=== PATIENT | female | born 1995 | race Caucasian/White ===

== ENCOUNTER → 2018-07-25 15:31 | Outpatient (CLI) | payer OTHER, SELFPAY ==
[2018-08-04 11:37] LABS: HPV APTIMA, High Risk Positive (Negative)
== END ==
PROVIDERS: Visit Provider Obstetrics & Gynecology
DX: Z12.4 Encounter for screening for malignant neoplasm of cervix (principal)
CPT/HCPCS: 88175; G0145

== ENCOUNTER → 2018-09-11 15:50 | Outpatient (CLI) | payer OTHER, SELFPAY ==
--- NOTE | 2018-09-11 | IMM_PTH ---
PATIENT: REGINO MELO LOC: [facility] U#:[id number] AGE/SX: 30/F ROOM: RE09/11/[address]: Dr. Michele Saldana MD : 1995 BED: DIS: SPEC #: [id number] RECD: 09/13/18 11:48 STATUS: IMELDA NUBIA #: [id number] KAVYA: 09/11/18 00:[address]: Michele Saldana DEPT: IMMUNOHISTOCHEMISTRY RECD BY: Nadege Hedrick Tissues: A - Uterine cervix, NOS Procedures: p16 (initial) KI-67 (add) PHYSICIAN & INSTITUTION [place] [address] SPECIMEN INFORMATION: Tissue Source: A - 6 o'clock Clinical Info: R87.612 Specimen Number: [id number] CPT code: 10049, 41125 METHODOLOGY: Deparaffinized sections of prefer/formalin-fixed tissue or PAP/DQ stained slides are incubated with monoclonal/polyclonal antibodies/oligonucleotide probes. Localization is made via biotin free immunoperoxidase method. Appropriate controls are performed and reacted as expected. Results on target cell population are indicated in the following table: RESULTS: ANTIBODY / CLONE RESULT Block A P16 (E6H4) positive, focal block-like Ki-67 (30-9) positive, low to moderate These tests were developed and their performance characteristics determined by [facility]. They may not have been cleared or approved by the U.S. Food and Drug Administration. The FDA has determined that such clearance or approval is not necessary. INTERPRETATION: A. Cervix at 6 o'clock, biopsy: Mild and focal moderate squamous dysplasia, YOGESH I-II ([facility]IL). AM:wendy 09/16/18
--- NOTE | 2018-09-11 15:15 | CER_PTH ---
PATIENT: REGINO MELO LOC: [facility] U#:[id number] AGE/SX: 30/F ROOM: RE09/11/[address]: Dr. Michele Saldana MD : 1995 BED: DIS: SPEC #: [id number] RECD: 09/11/18 15:50 STATUS: IMELDA NUBIA #: [id number] KAVYA: 09/11/18 15:[address]: Michele Saldana DEPT: SURGICAL PATHOLOGY RECD BY: Raudel Butler Tissues: A - Uterine cervix, NOS B - Endocervical Procedures: Surgery Specimen Level IV HEADER OPERATION: Colposcopy PRE-OP DIAGNOSIS: R87.612 TISSUE SUBMITTED: A - 6 o'clock, B - ECC MICROSCOPIC DIAGNOSIS A. 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 Squamous metaplasia and chronic inflammation. See comment. B. Endocervix, curettings: Rare strips of benign superficial endocervix. No evidence of dysplasia. See comment. AM:wendy 09/13/18 COMMENT A. Results from immunohistochemistry ([id number]) for surrogate HPV marker (p16) will be reported separately. B. The specimen primarily consists of mucoid material. Clinical correlation is suggested. MICROSCOPIC DESCRIPTION Slides are reviewed. GROSS DESCRIPTION A - Received in fixative is one container labeled with the patient's name and designated 6 o'clock. The specimen consists of multiple irregular fragments of light will soft tissue that in aggregate measure 0.6 x 0.5 x 0.1 cm. The specimen is totally submitted in one cassette. B - Received in fixative is one container labeled with the patient's name and designated ECC. The specimen consists of light will mucoid material aggregating to 1 x 1 x <0.1 cm. The specimen is totally submitted in one cassette. / AM:wendy 09/12/18 TC:4 CPT: 48069 x2
== END ==
PROVIDERS: Referring Provider Obstetrics & Gynecology; Visit Provider Obstetrics & Gynecology
DX: R87.612 Low grade squamous intraepithelial lesion on cytologic smear of cervix (LGSIL) (principal)
CPT/HCPCS: 88305; 88341; 88342

== ENCOUNTER → 2019-09-22 16:26 | Outpatient (CLI) | payer OTHER, SELFPAY ==
[2019-09-25 17:50] LABS: HPV APTIMA, High Risk Positive (Negative); HPV Reflexed? YES, CHARGE PATIENT
== END ==
PROVIDERS: Visit Provider Obstetrics & Gynecology
DX: Z12.4 Encounter for screening for malignant neoplasm of cervix (principal)
CPT/HCPCS: 87624; 88175; G0145

== ENCOUNTER → 2019-10-09 14:33 | Outpatient (CLI) | payer OTHER, SELFPAY ==
[2017-05-28 18:02] VITALS: BMI 27.1
--- NOTE | 2019-10-09 | IMM_PTH ---
PATIENT: REGINO MELO LOC: [facility] U#:[id number] AGE/SX: 30/F ROOM: RE10/09/[address]: Dr. Michele Saldana MD : 1995 BED: DIS: SPEC #: [id number] RECD: 10/13/19 12:55 STATUS: IMELDA REBecca #: [id number] KAVYA: 10/09/19 00:[address]: Michele Saldana DEPT: IMMUNOHISTOCHEMISTRY RECD BY: Nadege Hedrick ENTERED: 10/13/19 12:56 SP TYPE: IMMUNO OTHR DR: No Primary Care Phys Tissues: A - Uterine cervix, NOS B - Endocervical Procedures: P16 (add) KI-67 (initial) PHYSICIAN & INSTITUTION [place] [address] SPECIMEN INFORMATION: Tissue Source: A - Cervical biopsy at 6 o'clock, B - ECC Clinical Info: ASCUS, positive HPV Specimen Number: [id number] & B CPT code: 55581 x2, 29618 x2 METHODOLOGY: Deparaffinized sections of prefer/formalin-fixed tissue or PAP/DQ stained slides are incubated with monoclonal/polyclonal antibodies/oligonucleotide probes. Localization is made via biotin free immunoperoxidase method. Appropriate controls are performed and reacted as expected. Results on target cell population are indicated in the following table: RESULTS: ANTIBODY / CLONE RESULT Block A P16 (E6H4) positive, focal and patchy Ki-67 (30-9) negative Block B P16 (E6H4) positive Ki-67 (30-9) positive These tests were developed and their performance characteristics determined by [facility]. They may not have been cleared or approved by the U.S. Food and Drug Administration. The FDA has determined that such clearance or approval is not necessary. The above immunohistochemical/dualISH markers are ordered and reviewed by the Pathologist. INTERPRETATION: A. Cervical biopsy at 6 o'clock: Focal changes consistent with HPV cytopathic effects. B. ECC: A minute detached and unoriented fragment of squamous epithelium with dysplastic changes. SJ:wendy 10/14/19
--- NOTE | 2019-10-09 14:30 | CER_PTH ---
PATIENT: REGINO MELO LOC: [facility] U#:[id number] AGE/SX: 30/F ROOM: RE10/09/[address]: Dr. Michele Saldana MD : 1995 BED: DIS: SPEC #: [id number] RECD: 10/09/19 15:32 STATUS: IMELDA NUBIA #: [id number] KAVYA: 10/09/19 14:[address]: Michele Saldana DEPT: SURGICAL PATHOLOGY RECD BY: Carl Stephens ENTERED: 10/10/19 11:14 SP TYPE: CERV OTHR DR: No Primary Care Phys Tissues: A - Uterine cervix, NOS B - Uterine cervix, NOS Procedures: Surgery Specimen Level IV HEADER OPERATION: Colposcopy PRE-OP DIAGNOSIS: ASCUS, positive HPV TISSUE SUBMITTED: A - Cervical biopsy 6 o'clock, B - ECC MICROSCOPIC DIAGNOSIS A. Cervix, 6 o'clock, biopsy: Focal changes consistent with HPV cytopathic effects. Chronic inflammation. See comment. B. ECC: A minute detached and unoriented fragment of squamous epithelium with focal dysplastic changes Fragments of benign endocervical epithelium, blood and mucous. See comment. SITA:wendy 10/13/19 COMMENT A & B. Immunohistochemistry ([id number]) for surrogate HPV marker (p16) supports the above diagnosis. Please make reference to previous specimen ([id number]) cervix at 6 o'clock, biopsy with diagnosis of mild to focal moderate squamous dysplasia. MICROSCOPIC DESCRIPTION Slides are reviewed. GROSS DESCRIPTION A - Received in fixative is one container labeled with the patient's name and designated cervical biopsy 6 o'clock. The specimen consists of multiple irregular fragments of light will soft tissue that in aggregate measure 1 x 0.3 x 0.1 cm. The specimen is totally submitted in one cassette. B - Received in fixative is one container labeled with the patient's name and designated ECC. The specimen consists of multiple fragments of hemorrhagic soft tissue that in aggregate measure 1 x 0.5 x 0.1 cm. The specimen is totally submitted in one cassette. / SJ:wendy 10/10/19 TC:5 CPT: 67379 x2
== END ==
PROVIDERS: Referring Provider Obstetrics & Gynecology; Visit Provider Obstetrics & Gynecology
DX: R87.610 Atypical squamous cells of undetermined significance on cytologic smear of cervix (ASC-US) (principal); R87.810 Cervical high risk human papillomavirus (HPV) DNA test positive
CPT/HCPCS: 88305; 88341; 88342

== ENCOUNTER → 2020-10-27 | Outpatient (CLI) | payer OTHER, SELFPAY ==
[2017-05-28 18:02] VITALS: BMI 27.1
[2020-11-03 16:59] LABS: HPV APTIMA, High Risk Negative (Negative)
[2020-11-03 17:00] LABS: HPV Reflexed? YES, CHARGE PATIENT
== END | disposition home or self-care (01) ==
LOC: LABSPEC 17:15
PROVIDERS: Visit Provider Obstetrics & Gynecology
DX: Z12.4 Encounter for screening for malignant neoplasm of cervix (principal)
CPT/HCPCS: 87624; 88175; G0145

== ENCOUNTER 2021-11-02 16:52 | Outpatient (CLI) | payer OTHER, SELFPAY ==
[2021-11-07 18:01] LABS: HPV APTIMA, High Risk Negative (Negative); HPV Reflexed? YES, CHARGE PATIENT
== END 2021-11-02 23:59 | disposition home or self-care (01) ==
PROVIDERS: Visit Provider Obstetrics & Gynecology
DX: Z12.4 Encounter for screening for malignant neoplasm of cervix (principal); Z11.3 Encounter for screening for infections with a predominantly sexual mode of transmission; N89.8 Other specified noninflammatory disorders of vagina
CPT/HCPCS: 87624; 88175; G0145

== ENCOUNTER → 2022-03-23 | Outpatient (CLI) | payer OTHER, SELFPAY | END | disposition home or self-care (01) | PROVIDERS: Visit Provider Obstetrics & Gynecology | DX: Z11.3 Encounter for screening for infections with a predominantly sexual mode of transmission (principal) ==

== ENCOUNTER 2022-07-03 07:37 | Emergency (ER) | payer OTHER, SELFPAY ==
[2022-07-03 07:37] VITALS: BP 117/80; PULSE 102; RESP 16; TEMP 36.2; O2SAT 99; BMI 28.1
[2022-07-03 07:40] VITALS: BP 117/80; PULSE 102; RESP 18; TEMP 36.2; O2SAT 99
--- NOTE | 2022-07-03 07:46 | EDS_ITS ---
HPI History of Present Illness Chief Complaint: Fever Informant: patient Onset/Context/Timing Onset: Days (5 days) Current Severity: Mild Maximum Severity: Moderate Narrative Narrative: Patient presents with generalized illness and fever for the past 5 days. She states her temperatures been up around 102. She complains of some left lower quadrant abdominal pain. She is a mild headache. She denies significant cough, congestion, nausea, vomiting, diarrhea. No urinary symptoms. She went to [facility] on Sunday. She states lab work and urinalysis were negative. She reports having a temperature of 100.8 this morning he did not take anything for her fever. At the time of my exam her temperature is 98.4 orally. PFSH PFSH Medical History no medical history no medical history Home Medications NK 07/03/22 [History Last Taken Unknown] Allergy/AdvReac Type Severity Reaction Status Date / Time No Known Allergies Allergy Verified 07/03/22 07:40 Surgical History H/O knee surgery History of Social History Smoking Status: Never smoker ROS ROS ED Constitutional Constitutional ED: Reports chills and fever(s) Eyes Eyes: Denies change in vision or discharge from eye(s) ENT ENT ED: Denies discharge from eye(s), rhinorrhea or sore throat Cardiovascular Cardiovascular: Denies chest pain or palpitations Respiratory/Chest Respiratory/Chest: Denies cough or dyspnea Gastrointestinal Gastrointestinal: Reports abdominal pain; Denies diarrhea, nausea or vomiting Genitourinary Genitourinary ED: Denies difficulty urinating or dysuria Musculoskeletal Musculoskeletal: Denies back pain or extremity pain Integumentary Denies Abrasions or rash Neurologic Neurologic: Reports headache(s); Denies weakness Psychiatric Psychiatric: Denies anxiety or depression Allergic/Immunologic Allergic/Immunologic ED: Denies lip swelling or urticaria EXAM Physical Exam Const Vital Signs: 07/03/22 07:37 07/03/22 07:48 07/03/22 07:40 Temperature 97.1 F L 97.1 F L Temperature Source Temporal Temporal Pulse Rate 102 H 102 H Respiratory Rate 16 18 Respiratory Effort Normal Non-Labored Respiratory Pattern Normal Blood Pressure 117/80 117/80 Blood Pressure Mean 92 92 Pulse Ox 99 99 Oxygen Delivery Method Room Air Room Air 07/03/22 08:40 07/03/22 08:40 07/03/22 10:17 Temperature 98.2 F 98.2 F 98.5 F Temperature Source Oral Oral Oral Pulse Rate 89 89 87 Respiratory Rate 18 18 18 Respiratory Effort Respiratory Pattern Blood Pressure 111/84 H 111/84 H 110/74 Blood Pressure Mean 93 93 86 Pulse Ox 97 97 99 Oxygen Delivery Method Room Air Room Air Room Air 07/03/22 10:17 Temperature 98.5 F Temperature Source Oral Pulse Rate 87 Respiratory Rate 18 Respiratory Effort Respiratory Pattern Blood Pressure 110/74 Blood Pressure Mean 86 Pulse Ox 99 Oxygen Delivery Method Room Air Positive well nourished and well developed General Appearance ED: well developed HEENT Reports normocephalic and head/scalp atraumatic Eyes PERRL and EOMs intact bilaterally Neck supple Chest Wall inspection of chest normal and palpation of chest normal Resp normal respiratory effort and clear to auscultation bilaterally Cardio regular rate and regular rhythm GI normal to inspection, nondistended, normoactive bowel sounds and non-tender Palpation: soft Extremity normal to inspection Neuro oriented x3 and no sensory deficits noted Sensorium / Orientation: alert Motor Exam: strength 5/5 throughout Psych mental status grossly normal Skin no rashes or lesions noted MDM MDM MDM Narrative Medical decision making narrative: Patient is given IV fluids. Lab work, urinalysis, CT scan of the abdomen pelvis with contrast obtained. I did review the note from the work-up at [place]. Lab Data Attestation: I reviewed the patient's lab results. Labs: Laboratory Results - last 24 hr 07/03/22 07/03/22 07/03/22 07:52 07:52 07:52 WBC 7.0 RBC 4.34 Hgb 13.2 Hct 38.6 MCV 88.9 MCH 30.4 MCHC 34.2 RDW Std Deviation 38.5 RDW Coeff of Naldo 11.9 Plt Count 140 L MPV 8.7 Immature Gran % (Auto) 0.300 Neut % (Auto) 44.7 L Lymph % (Auto) 46.9 H [place] % (Auto) 4.4 Eos % (Auto) 2.0 Baso % (Auto) 1.7 H Absolute Neuts (auto) 3.1 Absolute Lymphs (auto) 3.28 Nucleated RBC % 0 Diff Path Review May foll Atypical Lymphocytes 3+ Platelet Estimate SLT DEC RBC Morphology NORM C+C Sodium 138 Potassium 3.4 L Chloride 104 Carbon Dioxide 27.0 Anion Gap 7 BUN 8 Creatinine 0.89 Estim Creat Clear Calc 94.93 Est GFR (MDRD) Af Amer 97 Est GFR (MDRD) Non-Af 81 BUN/Creatinine Ratio 9.0 L Glucose 125 H Calcium 8.7 Total Bilirubin 0.40 Direct Bilirubin 0.14 AST 158 H ALT 71 H Alkaline Phosphatase 121 H Total Protein 6.6 Albumin 3.0 L Globulin 3.6 Serum , Qual NEGATIVE Urine Color Urine Clarity Urine pH Ur Specific [place] Urine Protein Urine Glucose (UA) Urine Ketones Urine Occult Blood Urine Nitrite Urine Bilirubin Urine Urobilinogen Ur Leukocyte Esterase Urine RBC Urine WBC Ur Squamous Epith Cells Urine Bacteria Urine Mucus 07/03/22 08:30 WBC RBC Hgb Hct MCV MCH MCHC RDW Std Deviation RDW Coeff of Naldo Plt Count MPV Immature Gran % (Auto) Neut % (Auto) Lymph % (Auto) [place] % (Auto) Eos % (Auto) Baso % (Auto) Absolute Neuts (auto) Absolute Lymphs (auto) Nucleated RBC % Diff Path Review Atypical Lymphocytes Platelet Estimate RBC Morphology Sodium Potassium Chloride Carbon Dioxide Anion Gap BUN Creatinine Estim Creat Clear Calc Est GFR (MDRD) Af Amer Est GFR (MDRD) Non-Af BUN/Creatinine Ratio Glucose Calcium Total Bilirubin Direct Bilirubin AST ALT Alkaline Phosphatase Total Protein Albumin Globulin Serum , Qual Urine Color Yellow Urine Clarity Sl. Cloudy Urine pH 7.0 Ur Specific [place] 1.005 Urine Protein Negative Urine Glucose (UA) Normal Urine Ketones Negative Urine Occult Blood 25 H Urine Nitrite Negative Urine Bilirubin Negative Urine Urobilinogen Normal Ur Leukocyte Esterase Negative Urine RBC 0-5 SEEN Urine WBC 0 SEEN Ur Squamous Epith Cells 0-5 SEEN Urine Bacteria 0 SEEN Urine Mucus 0 SEEN Radiography Diagnostic Testing: Clinical Impression(s) from Imaging Studies Abdomen/Pelvis CT 07/03/22 09:35 IMPRESSION: Small amount of free fluid is seen in the cul-de-sac. This is more prominent on the right side. Follicles are seen in both ovaries more prominent on the right side. Electronically Signed: Randy Parisi MD at 10:08 EDT , Treatment and Re-Evaluation Narrative: CBC reveals normal white count with lymphocyte predominance. Chemistry studies significant for slightly low potassium at 3.4. LFTs reveal mild elevation in AST at 158 ALT of 71 and alk phos of 121. Patient has no tenderness in the right upper quadrant. test is negative and urinalysis reveals no infection. CT scan abdomen and pelvis reveals a small moderate free fluid in the cul-de-sac. No other acute findings are noted. Test results are discussed with the patient. She will continue supportive care. She has an appointment with [facility] later this month. I suspect her mild lab error secondary to a viral syndrome. Return instructions provided. Discharge Plan Triage Chief Complaint: Fever ED Provider: Ofelia Son Dx/Rx/DC Orders Clinical Impression: Viral syndrome, Abdominal pain Instructions: ED Abdominal Pain Unkn Cause Fem, ED Viral Syndrome (Adult) Prescriptions: No Action NK Primary Care Provider: Care Physician,No Primary Referrals: Loy Daley MD [Med Staff - Active Staff] - Keep Jason appointment Care Physician,No Primary [Primary Care Provider] - Disposition Disposition: Home, Self Care
[2022-07-03] MEDS: 0.9% Normal Saline 1,000 ML 150 ML IV (08:00)
[2022-07-03 08:02] LABS: Absolute Lymphocyte Count 3.28 X10^3/uL (0.83-4.51); Absolute Neutrophil Count 3.1 X10^3/uL (2.0-7.7); Basophil# 0.12 X10^3/uL; Basophil% 1.7 % (0-1); Eosinophil# 0.14 X10^3/uL; Hematocrit 38.6 % (37-47); Hemoglobin 13.2 g/dL (12.0-15.0); Lymphocyte # 3.28 X10^3/ul (0.83-4.51); Lymphocyte % 46.9 % (19-41); Mean Corp Hgb Conc 34.2 g/dL (32-36); Mean Corpuscular Hgb 30.4 pg (27.0-32.0); Mean Corpuscular Volume 88.9 fL (81-99); Mean Platelet Vol. 8.7 fl (6.2-12.0); Monocyte# 0.31 X10^3/uL; Monocyte% 4.4 % (0-10); NRBC Flagged by Analyzer 0 % (0-5); Neutrophil # 3.13 X10^3/uL (2.7-7.7); Neutrophil % 44.7 % (47-70); POSITIVE MORPHOLOGY YES; Platelet Count 140 K/mm3 (150-450); RBC Distribution Width CV 11.9 % (11.6-14.6); RBC Distribution Width SD 38.5 fl (35.1-43.9); Red Blood Count 4.34 M/mm3 (4.2-5.4)
[2022-07-03 08:05] LABS: Differential Indicated SCAN CRITERIA MET
[2022-07-03 08:10] LABS: Internal QC Validated? YES +Cl - CLEAR BKGD; Pregnancy, Serum, hCG Quali. NEGATIVE Negative
[2022-07-03 08:18] LABS: AST(SGOT) 158 U/L (15-37); Alanine Aminotransfer ALT/SGPT 71 U/L (13-56); Alkaline Phosphatase 121 U/L (45-117); Anion Gap 7 (5-15); BUN 8 mg/dL (7-18); Bilirubin, Direct 0.14 mg/dL (0.00-0.30); Calcium,Total 8.7 mg/dL (8.5-10.1); Chloride 104 mmol/L (98-107); Creatinine, Serum 0.89 mg/dL (0.55-1.02); EST Glomerular Filtration Rate 81 mL/min (>60); Est Glom Filt Rate - Afr Amer 97 mL/min (>60); Estimated Creatinine Clearance 94.93 ml/min; Globulin 3.6 g/dL (2.2-4.2); Glucose 125 mg/dL (74-106); Potassium 3.4 mmol/L (3.5-5.1); Protein, Total 6.6 g/dL (6.4-8.2); Sodium Level 138 mmol/L (136-145)
[2022-07-03 08:31] LABS: Bacteria 0 SEEN /hpf (None Seen); Mucous, Urine 0 SEEN /hpf (<or=2+); White Blood Cells 0 SEEN /hpf (0-5)
[2022-07-03 08:33] LABS: Color, Urine Yellow (Yellow); Glucose, Dipstick Normal (Normal); Ketone-Dipstick Negative (Negative); Leukocyte Esterase-Dipstick Negative /ul (Negative); Nitrite-Dipstick Negative (Negative); Occult Blood-Urine 25 /ul (Negative); Protein-Dipstick Negative (Negative); Specific Gravity, Urine 1.005 (1.002-1.030); Urine Bilirubin Dipstick Negative (Negative); Urine Clarity Sl. Cloudy (Clear); Urine Urobilinogen Normal (Normal)
[2022-07-03 08:35] LABS: Atypical Lymphocyte 3+ %; Platelet Estimate SLT DEC (ADEQ); Red Cell Morphology NORM C+C NORMAL (NORM C&C)
[2022-07-03 08:40] VITALS: BP 111/84; PULSE 89; RESP 18; TEMP 36.8; O2SAT 97
[2022-07-03 08:49] LABS: Red Blood Cells-Urine 0-5 SEEN /hpf (0-5); Squamous Epithelial Cells - UA 0-5 SEEN /hpf (5-10)
--- NOTE | 2022-07-03 09:35 | CT_ITS ---
STUDY: CT ABDOMEN AND PELVIS WITH CONTRAST REASON FOR EXAM: Female, 27 years old. 4 day history of fever and chills. Vaginal bleeding. RADIATION DOSAGE (If Supplied By Facility): CTDIvol = ( 14.04 ) mGy, DLP = ( 1000.82 ) mGycm TECHNIQUE: Transaxial images were obtained from the dome of the diaphragm to the symphysis pubis with oral contrast. Oral and amp; IV Gastrografin and amp; 100mL Isovue-370 was administered. Sagittal and coronal images were reconstructed. Individualized dose optimization techniques were used for this CT. COMPARISON: None. FINDINGS: The visualized lung bases are unremarkable. The visualized portions of the heart are within normal limits. Normal liver. Normal gallbladder and extrahepatic biliary system. Normal spleen. Normal pancreas. Normal bilateral adrenal glands. Normal right kidney. Normal left kidney. Normal visualized stomach. Normal small intestine. Normal colon. The appendix is visualized and appears normal. Normal abdominal aorta. Normal inferior vena cava. There is borderline retroperitoneal lymphadenopathy. The largest lymph node measures 1.1 cm. Normal urinary bladder. Small lymph nodes are seen in the mesenteric fat in the right lower quadrant suggestive of mesenteric adenitis. Small amount of free fluid is seen in the cul-de-sac. There is evidence of a follicles in both ovaries more prominent on the right side. Normal abdominal wall. Normal osseous structures. CT/Abdomen/Pelvis WITH Contrast IMPRESSION: Small amount of free fluid is seen in the cul-de-sac. This is more prominent on the right side. Follicles are seen in both ovaries more prominent on the right side. Electronically Signed: Randy Parisi MD at 10:08 EDT ,
[2022-07-03 10:17] VITALS: BP 110/74; PULSE 87; RESP 18; TEMP 36.9; O2SAT 99
[2022-07-04 13:42] LABS: Pathologist Review Reviewed
== END 2022-07-03 10:46 | disposition home or self-care (01) ==
PROVIDERS: Emergency Provider Emergency Medicine; Visit Provider Emergency Medicine
DX: B34.9 Viral infection, unspecified (principal); R10.32 Left lower quadrant pain
CPT/HCPCS: 74177; 80048; 80076; 81001; 84703; 85025; 87428; 96360; 96361; 99283; J7030; Q9967; A4216

== ENCOUNTER → 2022-07-13 | Outpatient (CLI) | payer OTHER, SELFPAY ==
[2022-07-13 10:21] LABS: Absolute Lymphocyte Count 15.93 X10^3/uL (0.83-4.51); Absolute Neutrophil Count 3.3 X10^3/uL (2.0-7.7); Basophil# 0.05 X10^3/uL; Basophil% 0.3 % (0-1); Eosinophil# 0.05 X10^3/uL; Eosinophils% 0.3 % (0-5); Hematocrit 41.4 % (37-47); Hemoglobin 13.6 g/dL (12.0-15.0); Lymphocyte # 15.93 X10^3/ul (0.83-4.51); Lymphocyte % 80.1 % (19-41); Mean Corp Hgb Conc 32.9 g/dL (32-36); Mean Corpuscular Hgb 30.2 pg (27.0-32.0); Mean Corpuscular Volume 91.8 fL (81-99); Mean Platelet Vol. 8.8 fl (6.2-12.0); Monocyte# 0.58 X10^3/uL; Monocyte% 2.9 % (0-10); NRBC Flagged by Analyzer 0 % (0-5); Neutrophil # 3.26 X10^3/uL (2.7-7.7); Neutrophil % 16.2 % (47-70); POSITIVE DIFFERENTIAL YES; POSITIVE MORPHOLOGY YES; Platelet Count 170 K/mm3 (150-450); RBC Distribution Width CV 13.3 % (11.6-14.6); RBC Distribution Width SD 45.2 fl (35.1-43.9); Red Blood Count 4.51 M/mm3 (4.2-5.4); White Blood Count 19.9 K/mm3 (4.4-11.0)
[2022-07-13 10:30] LABS: Differential Indicated SCAN CRITERIA MET
[2022-07-13 11:03] LABS: Reactive Lymphocyte 3+
[2022-07-13 11:32] LABS: hCG Titer Quant., Serum < 1 mIU/mL (1-3)
[2022-07-13 11:42] LABS: Estradiol 103.8 pg/mL; Follicle Stimulating Hormone 2.9 mIU/mL; Luteinizing Hormone 6.9 mIU/mL; Prolactin 11.4 ng/mL; T4 Free Direct 1.14 ng/dL (0.76-1.46); Thyroid Stim Hormone (TSH) 1.11 uIU/mL (0.358-3.74)
[2022-07-14 15:51] LABS: Pathologist Review Reviewed
[2022-07-20 08:10] LABS: Testosterone, Free 0.23 ng/dL (0.10-0.85); Testosterone, Total 15 ng/dL (13-71)
[2022-07-20 16:04] LABS: Testosterone, % Free 1.52 % (0.50-2.80)
== END | disposition home or self-care (01) ==
LOC: WOBLAB 09:35
PROVIDERS: Visit Provider Obstetrics & Gynecology
DX: N93.9 Abnormal uterine and vaginal bleeding, unspecified (principal)
CPT/HCPCS: 36415; 82670; 83001; 83002; 84146; 84402; 84403; 84439; 84443; 84702; 85025

== ENCOUNTER 2022-07-24 09:11 | Day surgery (SDC) | payer OTHER, SELFPAY ==
[2022-07-24] VITALS (10 sets, daily range): BP systolic 105–123; BP diastolic 70–80; PULSE 64–79; RESP 16; TEMP 36.1–36.9; O2SAT 96–100; BMI 28.3
--- NOTE | 2022-07-24 09:18 | PCM.HP.BLA ---
History and Physical Date of Admission: 07/24/22 Chief complaint: Abnormal uterine bleeding History present illness: 27-year-old arrives for hysteroscopy, dilation and curettage for abnormal uterine bleeding. No medical changes since last seen. All questions answered and consent signed. Obstetric history: Patient with a history of 1 vaginal delivery Past medical history: None Medications: None Past surgical history: section, knee surgery Allergies: No known drug allergies Family history: Denies history DVT or PE Social history: Denies smoking, Kos, drug use Review of systems: Besides above pertinent positives a full review of systems was performed and found to be negative Physical exam: Vitals: Pending General: Normal-appearing no acute distress HEENT: Normocephalic/atraumatic no cervical adenopathy Cardiac/respiratory: No accessory muscles, nonlabored breathing Abdomen: Soft, nontender, nondistended Extremities: No peripheral edema normal peripheral pulses Psych: Normal affect normal demeanor nonpressured speech Assessment and plan: 27-year-old for hysteroscopy, dilation and curettage for abnormal uterine bleeding. Educated patient on the risk benefits alternatives of the procedure. Patient states understanding and wished to proceed. All questions were answered and consent was signed
[2022-07-24 09:30] LABS: Internal QC Validated? YES +Cl - CLEAR BKGD; Pregnancy, Urine Negative Negative
[2022-07-24] MEDS: Lactated Ringers 1,000 ML 120 ML IV (09:34)
--- NOTE | 2022-07-24 10:18 | DCINST_ITS ---
Discharge Instructions Diet Discharge Diet: No restrictions Activity Discharge Activity: Return to Normal Activity, May Drive and May Shower May resume sexual activity in: 4-6 weeks Weight Bearing Status: Weight bearing as tolerated Dressing / Incision Call your doctor if your incision/area has: Continuous Slow Oozing and Foul Smelling Discharge Call your doctor if you observe: Fever of 101 or Higher, Shortness of breath and Chest pain Follow Up Care Please Follow Up With: Loy Daley MD When: 2 weeks postoperative Test Results: Test results from this visit will be discussed in further detail at your follow- up appointment, if applicable. Discharge Plan Admission Attending Provider: Loy Daley Primary Care Provider: Care Physician,Rosalina Primary Discharge Orders/Prescriptions Prescriptions: No Action NK Referrals / Follow Up: Care Physician,No Primary [Primary Care Provider] - Disposition Disposition (needs filled in before D/C Order can be placed): Home, Self Care
--- NOTE | 2022-07-24 10:18 | PCM.OPRPT ---
Report of Operation Date of Procedure: 07/24/22 Pre-Operative Diagnosis: Abnormal uterine bleeding Post-Operative Diagnosis: Abnormal uterine bleeding Surgery/Procedure Performed:: Hysteroscopy, dilation and curettage Description of Surgical Findings:: Surgeon: Loy Daley MD Anesthesia: MAC EBL: Minimal Urine output: Not measured IV fluids: 400 cc Complications: None Specimen: Endometrial curettings Findings: Hysteroscopy with no pathology noted. Consent: Patient with abnormal uterine bleeding elects for hysteroscopy, dilation and curettage. Patient understands risk of the procedure include but are not limited to visceral or vascular injury, prolonged hospitalization, loss of need for transfusion, reoperation. Patient stated understanding and wished to proceed. All questions were answered and consent was signed. Procedure: Patient was brought back to the OR where MAC anesthesia was found to be adequate. Patient was prepared and draped in dorsolithotomy position with yellowfin stirrups. A weighted speculum was placed in the posterior aspect of the vagina and cervical dilators were used to dilate the cervix. Hysteroscope was inserted and above findings were noted. Sharp endometrial curettings in all quadrants was performed under direct visualization and sent to pathology. Good hemostasis was noted. All counts were correct x2. Patient tolerated the procedure well and was brought to recovery in a stable condition.
[2022-07-24] MEDS: Ketorolac 30 MG/ML Syringe IV (10:40)
--- NOTE | 2022-07-24 10:50 | EMB_PTH ---
PATIENT: REGINO DALEY [place] [facility] [place][id number] AGE/SX: 27/F ROOM: RE07/24/[address]: Dr. Loy Daley MD : 1995 BED: DIS: 07/24/2022 SPEC #: [id number] RECD: 07/24/22 11:09 STATUS: IMELDA REBecca #: [id number] KAVYA: 07/24/22 10:[address]: Loy Daley DEPT: SURGICAL PATHOLOGY RECD BY: Xochitl Dubon ENTERED: 07/24/22 11:27 SP TYPE: ENDOM BX/C ELICEO DR: No Primary Care Phys Tissues: Endometrium, NOS Procedures: Surgery Specimen Level IV HEADER OPERATION: Hysteroscopy, dilation and curettage PRE-OP DIAGNOSIS: Abnormal uterine bleeding TISSUE SUBMITTED: Endometrial curettings MICROSCOPIC DIAGNOSIS Endometrial curettings: Proliferative endometrium. SJ:wendy 07/25/2022 MICROSCOPIC DESCRIPTION Slides are reviewed. GROSS DESCRIPTION Received in fixative is one container labeled with the patient's name and designated endometrial curettings. The specimen consists of multiple irregular fragments of will-red soft tissue that in aggregate measure 2.3 x 2 x 0.2 cm. The specimen is totally submitted in one cassette. / AM:wendy 07/24/2022 TC:4 CPT: 45995
== END 2022-07-24 12:00 | disposition home or self-care (01) ==
LOC: SDC 09:12 → AC 09:16
PROVIDERS: Anesthesiology; Referring Provider Obstetrics & Gynecology; Visit Provider Obstetrics & Gynecology
PROC: 0UDB8ZZ Extraction of Endometrium, Via Natural or Artificial Opening Endoscopic (ICD-10-PCS; CPT 58558; principal; 2022-07-24 10:40)
DX: N93.9 Abnormal uterine and vaginal bleeding, unspecified (principal); Z86.718 Personal history of other venous thrombosis and embolism
CPT/HCPCS: 58558; 81025; 88305; J7120; J2405